=== PATIENT | female | born 1965 | race Caucasian/White ===

== ENCOUNTER 2018-06-19 16:33 | Inpatient (IN) | payer MEDICAID, OTHER ==
[~2018-06-19] VITALS: Ht 175.3 cm; Wt 81.3 kg
[2018-06-19 17:29] LABS: BASOPHILS # (AUTO) 0.06 x10^3/uL (0-0.1); BASOPHILS % (AUTO) 1 % (0-1); EOSINOPHILS % (AUTO) 1 % (1-7); LYMPHOCYTES # (AUTO) 1.88 x10^3/uL (1-3.4); LYMPHOCYTES % (AUTO) 22 % (22-44); MD NO; MEAN CORPUSCULAR HEMOGLOBIN 32.2 pg (27.0-34.8); MEAN CORPUSCULAR HGB CONC 34.3 g/dL (32.4-35.8); MEAN PLATELET VOLUME 9.2 fL (7.4-10.4); MONOCYTES # (AUTO) 0.52 x10^3/uL (0.2-0.8); MONOCYTES % (AUTO) 6 % (2-9); NEUTROPHILS # (AUTO) 5.82 x10^3/uL (1.8-6.8); NEUTROPHILS % (AUTO) 69 % (42-75); PLATELET COUNT 240 x10^3/uL (130-400); RED BLOOD COUNT 4.18 x10^6/uL (3.82-5.3); RED CELL DISTRIBUTION WIDTH 13.1 % (9.6-15.2)
[2018-06-19 17:39] LABS: ALBUMIN 3.6 g/dL (3.4-5.0); ANION GAP 5 mmol/L (5-15); CALCIUM 8.7 mg/dL (8.5-10.1); CHLORIDE 110 mmol/L (98-107)
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
[2018-06-19] MEDS ORDERED: KETOROLAC 30 MG/1 ML ONE (18:47)
[2018-06-19] MEDS ORDERED: LORazepam 1MG TABLET ONE (18:48)
[2018-06-19] MEDS ORDERED: LORazepam 1MG TABLET PO ONE (19:00)
[2018-06-19] MEDS ORDERED: KETOROLAC 30 MG/1 ML IM ONE (19:00)
[2018-06-19 19:02] LABS: AMPHETAMINE SCREEN, URINE Negative (Negative); BARBITURATE SCREEN, URINE Negative (Negative); BENZODIAZEPINE SCREEN, URINE Negative (Negative); CANNABINOID SCREEN, URINE Negative (Negative); COCAINE SCREEN, URINE Negative (Negative); METHADONE SCREEN, URINE Negative (Negative); OPIATE SCREEN, URINE Negative (Negative)
--- NOTE | 2018-06-19 19:40 | NUR ---
SOUMYA RN: TELEPSYCH PAGED
--- NOTE | 2018-06-19 21:02 | NUR ---
REPORT FROM RAGINI CONTRERAS TO ASSUME PT. CARE.
--- NOTE | 2018-06-19 22:36 | NUR ---
PT. RESTING ON GURNEY WITH MICHAEL. PT. TALKING TO SELF. MONITORS IN PLACE. CALL LIGHT IN REACH. AWAITING TELEPSYCH EVAL. SITTER IS IN [place].
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
[2018-06-19] MEDS ORDERED: AMLO-150 PO (22:50)
--- NOTE | 2018-06-19 23:45 | NUR ---
REPORT WAS GIVEN TO TELEPSYCH ; ELVER IN PROCESS NOW. PT. COOPERATIVE.
[2018-06-20] MEDS ORDERED: OLANZAPINE 2.5 MG TABLET PO ONE
[2018-06-20] MEDS ORDERED: HYDR25TA6 PO (00:19)
--- NOTE | 2018-06-20 00:43 | NUR ---
TASK RN: PT TO BE EVALUATED FOR POSSIBLE 3E ADMIN BY 3E CAROL CHAIREZ. AWAITING EVAL.
[2018-06-20] MEDS ORDERED: ZIPRASIDONE 20 MG INJ IM PRN (01:00)
[2018-06-20] MEDS ORDERED: BISACODYL 10 MG SUPP PR PRN (01:00)
[2018-06-20] MEDS ORDERED: ONDANSETRON ODT 4 MG PO PRN (01:00)
[2018-06-20] MEDS ORDERED: POLYETHYLENE GLYCOL 17 GM PACKET PO PRN (01:00)
[2018-06-20] MEDS ORDERED: DIPHENHYDRAMINE 50 MG CAPSULE PO PRN (01:00)
[2018-06-20] MEDS ORDERED: ACETAMINOPHEN 325 MG TABLET PO PRN (01:00)
[2018-06-20] MEDS ORDERED: QUETIAPINE 25MG TABLET PO PRN (01:00)
[2018-06-20] MEDS ORDERED: OLANZAPINE 2.5 MG TABLET PO SCH (01:08)
[2018-06-20] MEDS ORDERED: ACETAMINOPHEN 325 MG TABLET ONE (01:19)
--- NOTE | 2018-06-20 01:22 | NUR ---
REPORT TO RAGINI MATHEWS. FLOOR READY FOR PT. TRANSPORT. PT. MEDICATED PER MAY. PT. C/O LEFT HIP PAIN TYLENOL ADMINISTERED FOR THIS.
[2018-06-20 01:32] VITALS: BP 147/77
[2018-06-20 07:49] VITALS: BP 153/79
[2018-06-20] MEDS ORDERED: SENNA/DOCUSATE TABLET PO SCH (09:00)
[2018-06-20] MEDS ORDERED: HYDROCHLOROTHIAZIDE 25 MG TABLET PO SCH (09:00)
[2018-06-20] MEDS ORDERED: AMLODIPINE 10 MG TAB PO SCH (09:00)
[2018-06-20] MEDS ORDERED: SENN-177 PO (15:18)
[2018-06-20] MEDS ORDERED: OLAN2.5T10 PO (15:18)
== END 2018-06-20 16:57 | DRG 78 ==
LOC: ED 19:37 → EDIP 23:54 → OBSVTOIN 23:54 → 2N 06-20 01:34
PROVIDERS: ADMIT Family Medicine; ATTEND Family Medicine
DX: I67.4 Hypertensive encephalopathy (principal); F23 Brief psychotic disorder; I10 Essential (primary) hypertension; F43.10 Post-traumatic stress disorder, unspecified; M54.9 Dorsalgia, unspecified; G89.29 Other chronic pain; Z87.820 Personal history of traumatic brain injury; Z98.891 History of uterine scar from previous surgery
CPT/HCPCS: 36415; 72110; 80048; 80307; 82040; 85025; 93005; 96372; 99285; J1885